=== PATIENT | female | born 1975 | race Caucasian/White ===

== ENCOUNTER → 2019-01-05 | Emergency (ER) | payer OTHER ==
[~2019-01-05] VITALS: Ht 157.5 cm; Wt 88.5 kg
[~2019-01-05] MED LIST: KEFLEX500 MG PO; PERCOCET 5/3251 TAB PO
== END | disposition home or self-care (01) ==
LOC: ER 20:40
DX: R42 Dizziness and giddiness (principal)

== ENCOUNTER 2020-10-10 11:12 | Outpatient (CLI) | payer OTHER | END 2020-10-10 11:28 | disposition home or self-care (01) | LOC: RAD 11:12 | PROVIDERS: ATTEND Orthopaedic Surgery | DX: M25.511 Pain in right shoulder (principal); M25.561 Pain in right knee; M25.571 Pain in right ankle and joints of right foot; M25.552 Pain in left hip ==